=== PATIENT | male | born 1970 | race African-American/Black ===

== ENCOUNTER 2023-11-16 09:06 | Inpatient (IN) | payer BC, MEDICARE ==
[~2023-11-16] VITALS: Ht 182.9 cm; Wt 82.6 kg
[2023-11-16 09:10] VITALS: BP 190/94; PULSE 92; RESP 18; TEMP 97.6; O2SAT 97
[2023-11-16 10:50] LABS: ANION GAP 18.7 (8-16); CALCIUM 9.8 mg/dL (8.5-10.1); CARBON DIOXIDE 25.8 mmol/L (21-32); POTASSIUM 5.5 mmol/L (3.5-5.1)
[2023-11-16 10:52] LABS: BASOPHILS % (AUTO) 0.4 % (0.0-2.0); EOSINOPHILS # (AUTO) 0.3 K/uL (0-0.4); EOSINOPHILS % (AUTO) 3.9 % (0.0-4.0); HEMATOCRIT 38.8 % (36-52); LYMPHOCYTES % (AUTO) 11.6 % (20.5-51.1); MEAN CORPUSCULAR HEMOGLOBIN 30 pg (27-31); MEAN CORPUSCULAR HGB CONC 33 g/dL (33-37); MONOCYTES # (AUTO) 0.9 K/uL (0.8-1.0); MONOCYTES % (AUTO) 10.9 % (1.7-9.3); NEUTROPHILS # (AUTO) 6.1 K/uL (1.8-7.7); NEUTROPHILS % (AUTO) 73.2 % (42.2-75.2); PLATELET COUNT (AUTO) 188 K/uL (140-450); RED BLOOD CELL COUNT(AUTO) 4.36 MIL/uL (4.20-6.10); RED CELL DISTRIBUTION WIDTH 19.8 % (11.6-13.7); WHITE BLOOD COUNT (AUTO) 8.4 K/uL (4.8-10.8)
[2023-11-16 10:54] LABS: CREATININE 10.2 mg/dL (0.6-1.3)
[2023-11-16 11:09] LABS: BLOOD GAS PCO2 34.1 mmHg (35-45); BLOOD GAS PH 7.473 (7.35-7.45); BLOOD GAS PO2 65.8 mmHg (75-100)
[2023-11-16] MEDS: hydrALAZINE 20 MG/ML VIAL IVP ONE (11:09)
[2023-11-16 11:10] LABS: BLOOD GAS BASE EXCESS 1.3 mmol/L (-2.0-2.0); BLOOD GAS HCO3 24.4 mmol/L (22-26)
[2023-11-16 11:11] LABS: BLOOD GAS O2 SAT% 93.1 % (92.0-98.5)
[2023-11-16 11:12] LABS: INR 1.37 (0.8-1.2); PARTIAL THROMBOPLASTIN TIME 32.8 secs (22-35.6); PROTHROMBIN TIME 14.2 secs (10.8-13.4)
[2023-11-16 11:13] LABS: ALANINE AMINOTRANSFERASE 25 U/L (12-78); ALBUMIN 3.9 g/dL (3.4-5.0); ALKALINE PHOSPHATASE 95 U/L (50-136); ASPARTATE AMINOTRANSFERASE 35 U/L (15-37); BILIRUBIN,DIRECT 0.4 mg/dL (0.0-0.3); CREATINE KINASE, TOTAL 117 U/L (39-308); TOTAL BILIRUBIN 1.4 mg/dL (0.0-1.0); TOTAL PROTEIN, SERUM 8.2 g/dL (6.4-8.2)
[2023-11-16 11:26] LABS: LACTIC ACID 1.2 mmol/L (0.4-2.0)
[2023-11-16] MEDS: VANCOMYCIN 1GM/DEXT 5% PREMIX 200 ML IV ONE (12:40)
[2023-11-16] MEDS ORDERED: VANCOMYCIN PER PHARMACY MC PRN (12:40)
[2023-11-16] MEDS: ASPIRIN 325 MG TAB PO ONE (12:43)
[2023-11-16] MEDS: NICARDIPINE HYDROCHLORIDE 25 MG in NACL 0.9% 240 ML IV ONE (12:51)
[2023-11-16] MEDS ORDERED: CEFEPIME 1,000 MG VIAL ONE (12:57)
[2023-11-16] MEDS ORDERED: VANCOMYCIN 1,000 MG VIAL ONE (13:00)
[2023-11-16] MEDS: CEFEPIME 1,000 MG in DEXTROSE 5% 50 ML IV ONE (13:32)
[2023-11-16] MEDS ORDERED: MORPHINE SULFATE 2 MG/ML SYR IVP PRN (13:40)
[2023-11-16] MEDS ORDERED: ACETAMINOPHEN 325 MG TAB PO PRN (13:40)
[2023-11-16] MEDS ORDERED: ONDANSETRON 4 MG/2 ML VIAL IVP PRN (13:40)
[2023-11-16] MEDS ORDERED: WARF6TAB PO (13:41)
[2023-11-16] MEDS ORDERED: WARF4TAB PO (13:41)
[2023-11-16] MEDS ORDERED: CLOP75TA55 PO (13:41)
[2023-11-16 15:31] VITALS: PULSE 64; RESP 18; O2SAT 95
[2023-11-16 15:43] VITALS: BP 119/67; PULSE 64; RESP 18; TEMP 97; O2SAT 97
[2023-11-16 16:06] VITALS: PULSE 67
[2023-11-16 20:00] VITALS: BP 172/69; PULSE 59; PULSE 66; RESP 20; TEMP 97.8; O2SAT 98
[2023-11-16] MEDS ORDERED: hydrALAZINE 25 MG TAB PO PRN (21:35)
[2023-11-17] VITALS: BP 136/64; PULSE 59; PULSE 63; RESP 21; TEMP 97.7; O2SAT 94
[2023-11-17 04:00] VITALS: BP 133/61; PULSE 61; PULSE 64; RESP 19; TEMP 97.9; O2SAT 96
[2023-11-17 06:49] LABS: BASOPHILS # (AUTO) 0.1 K/uL (0.00-0.22); EOSINOPHILS # (AUTO) 0.7 K/uL (0-0.4); EOSINOPHILS % (AUTO) 8.7 % (0.0-4.0); HEMATOCRIT 40.1 % (36-52); HEMOGLOBIN 13.2 g/dL (12.0-18.0); LYMPHOCYTES % (AUTO) 12.5 % (20.5-51.1); MEAN CORPUSCULAR HEMOGLOBIN 30 pg (27-31); MEAN CORPUSCULAR HGB CONC 33 g/dL (33-37); MEAN CORPUSCULAR VOLUME 89.6 fL (80-94); MONOCYTES # (AUTO) 0.9 K/uL (0.8-1.0); MONOCYTES % (AUTO) 12.4 % (1.7-9.3); NEUTROPHILS % (AUTO) 65.4 % (42.2-75.2); PLATELET COUNT (AUTO) 168 K/uL (140-450); RED BLOOD CELL COUNT(AUTO) 4.47 MIL/uL (4.20-6.10); RED CELL DISTRIBUTION WIDTH 19.6 % (11.6-13.7); WHITE BLOOD COUNT (AUTO) 7.6 K/uL (4.8-10.8)
[2023-11-17 07:31] LABS: CALCIUM 8.7 mg/dL (8.5-10.1); CARBON DIOXIDE 26.7 mmol/L (21-32); POTASSIUM 4.7 mmol/L (3.5-5.1)
[2023-11-17 08:00] VITALS: BP 133/58; PULSE 57; PULSE 61; RESP 17; TEMP 97.8; O2SAT 97
[2023-11-17 08:01] LABS: CREATININE 8.7 mg/dL (0.6-1.3)
[2023-11-17 11:55] VITALS: BP 150/82; PULSE 64; RESP 18; TEMP 97.8; O2SAT 99
[2023-11-17 12:00] VITALS: PULSE 57
[2023-11-17] MEDS ORDERED: VANCOMYCIN PER PHARMACY MC PRN (12:20)
[2023-11-17] MEDS: SOTALOL 80 MG TAB PO SCH (12:38)
[2023-11-17 12:40] VITALS: BP 150/82; PULSE 57; RESP 18; TEMP 97.8
[2023-11-17] MEDS: VANCOMYCIN 750 MG in NACL 0.9% 250 ML IV SCH (12:56)
[2023-11-18] MEDS ORDERED: CLOPIDOGREL 75 MG TAB PO SCH (09:00)
[2023-11-18] MEDS ORDERED: SOTALOL 80 MG TAB PO SCH (09:00)
[2023-11-18] MEDS ORDERED: WARFARIN 1 MG TAB PO SCH (17:00)
== END 2023-11-17 15:37 | disposition home or self-care (01) | DRG 291 ==
LOC: MED 09:06 → MTU 13:38
PROVIDERS: ADMIT Hospitalist; ATTEND Hospitalist
PROC: 5A1D70Z Performance of Urinary Filtration, Intermittent, Less than 6 Hours Per Day (ICD-10-PCS; principal; 2023-11-16)
DX: I13.2 Hypertensive heart and chronic kidney disease with heart failure and with stage 5 chronic kidney disease, or end stage renal disease (principal); I50.23 Acute on chronic systolic (congestive) heart failure; N18.6 End stage renal disease; G93.49 Other encephalopathy; E11.22 Type 2 diabetes mellitus with diabetic chronic kidney disease; I25.10 Atherosclerotic heart disease of native coronary artery without angina pectoris; Z99.2 Dependence on renal dialysis; Z79.01 Long term (current) use of anticoagulants; Z79.899 Other long term (current) drug therapy; Z86.73 Personal history of transient ischemic attack (TIA), and cerebral infarction without residual deficits
CPT/HCPCS: 36415; 36600; 70450; 71045; 80048; 80076; 80202; 82550; 82553; 82803; 83605; 83735; 83874; 83880; 84484; 85025; 85610; 85730; 87040; 87081; 90935; 93005; 99291; J0360; J0692; J1644; J3370; J7030